=== PATIENT | female | born 1955 | race Caucasian/White ===

== ENCOUNTER 2019-05-21 09:54 | Inpatient (IN) ==
[2019-05-21 10:41] LABS: Basophils # 0.1 10*3/uL (0.0-0.2); Basophils % 0.3 % (0.0-0.8); Eosinophils # 0.2 10*3/uL (0.0-0.87); Eosinophils % 1.4 % (0.00-10.9); Hemoglobin 10.4 GM/DL (12.0-16.0); Immature Granulocytes % 0.8 %; Immature Granulocytes Absolute 0.13 #; Lymphocytes # 1.1 10*3/uL (1.4-4.0); Lymphocytes % 6.7 % (21.3-54.2); Mean Corpuscular HGB Conc 31.5 GM/DL (32-36); Mean Corpuscular Volume 91.4 FL (87-102); Monocytes % 5.1 % (1.7-12.7); Neutrophils % 85.7 % (38.7-73.9); Platelet Count 207 T/CUMM (130-400); Red Blood Count 3.61 MC/CUMM (3.8-5.5); Red Cell Distribution Width 15.9 % (9.3-17.3); White Blood Count 16.7 T/CUMM (4-12)
[2019-05-21 10:51] LABS: INR 0.9; PT Patient Result 10.3 SECS (9.6-12.2); Partial Thromboplastin Time 23.6 SECS (20.8-36.0)
[2019-05-21 11:07] LABS: Albumin 3.4 G/DL (3.4-5.0); Bilirubin,Total 0.6 MG/DL (0.2-1.0); Calcium 8.2 MG/DL (8.5-10.1); Osmolality,Calculated 279.4 MOS/KG (273-304); Total Protein 7.1 G/DL (6.4-8.3)
[2019-05-21] MEDS ORDERED: LABETALOL 20 MG/4 ML SYRINGE IV PRN (12:27)
[2019-05-21 12:52] LABS: VLDL CHOLESTEROL 46.4 MG/DL
[2019-05-21] MEDS ORDERED: POTASSIUM CHLORIDE 20 MEQ TABLET PO ONE (14:05)
[2019-05-21] MEDS ORDERED: NITROGLYCERIN SL 0.4 MG TABLET SL PRN (14:49)
[2019-05-21] MEDS ORDERED: FUROSEMIDE 20 MG TABLET PO PRN (14:49)
[2019-05-21] MEDS: ENOXAPARIN 30 MG/0.3 ML SYRINGE SUBCUT SCH (16:12)
[2019-05-21] MEDS ORDERED: PROMETHAZINE 25 MG TABLET PO PRN (17:41)
[2019-05-21] MEDS ORDERED: ALUMINUM/MAGNES/SIMETH MAX STR 30 ML UDCUP PO PRN (19:33)
[2019-05-21] MEDS ORDERED: BENZONATATE 100 MG CAPSULE PO PRN (19:49)
[2019-05-21] MEDS: CYCLOBENZAPRINE 10 MG TABLET PO SCH (20:31)
[2019-05-21] MEDS: ROSUVASTATIN 20 MG TABLET PO SCH (20:31)
[2019-05-21] MEDS: traZODone 50 MG TABLET PO SCH (20:31)
[2019-05-21] MEDS: METOPROLOL TARTRATE 25 MG TABLET PO SCH (20:31)
[2019-05-21] MEDS ORDERED: ROSUVASTATIN 10 MG TABLET PO SCH (21:00)
[2019-05-22 05:36] LABS: Albumin 2.8 G/DL (3.4-5.0); Bilirubin,Direct 0.12 MG/DL (0.0-0.20); Bilirubin,Indirect 0.3 MG/DL (0.0-1.0); Bilirubin,Total 0.4 MG/DL (0.2-1.0); Calcium 8.2 MG/DL (8.5-10.1); Osmolality,Calculated 284.1 MOS/KG (273-304); Total Protein 6.3 G/DL (6.4-8.3)
[2019-05-22 05:39] LABS: Basophils # 0.1 10*3/uL (0.0-0.2); Basophils % 0.4 % (0.0-0.8); Eosinophils # 0.4 10*3/uL (0.0-0.87); Eosinophils % 1.8 % (0.00-10.9); Hematocrit 31.4 VOL% (35.7-47.0); Immature Granulocytes % 1.6 %; Immature Granulocytes Absolute 0.35 #; Lymphocytes # 1.5 10*3/uL (1.4-4.0); Lymphocytes % 6.9 % (21.3-54.2); Mean Corpuscular HGB Conc 31.5 GM/DL (32-36); Mean Corpuscular Volume 88.5 FL (87-102); Mean Platelet Volume 10.9 FL (9.6-12.0); Monocytes % 4.5 % (1.7-12.7); Neutrophils % 84.8 % (38.7-73.9); Platelet Count 227 T/CUMM (130-400); Red Blood Count 3.55 MC/CUMM (3.8-5.5); White Blood Count 22.1 T/CUMM (4-12)
[2019-05-22 05:41] LABS: Hemoglobin 9.9 GM/DL (12.0-16.0)
[2019-05-22 05:48] LABS: Band Neutrophils 2 % (0-10); Lymphocytes 4 % (20-55); Platelet Estimate Normal; Segmented Neutrophils 90 % (50-85); Total Cells Counted 100
[2019-05-22] MEDS: AMIODARONE 200 MG TABLET PO SCH (08:33)
[2019-05-22] MEDS: GABAPENTIN 600 MG TABLET PO SCH (08:33)
[2019-05-22] MEDS: METOPROLOL TARTRATE 25 MG TABLET PO SCH ×2 (08:33→20:59)
[2019-05-22] MEDS: CYCLOBENZAPRINE 10 MG TABLET PO SCH ×2 (08:33→20:59)
[2019-05-22] MEDS: ASPIRIN CHEW 81 MG TABLET PO SCH (08:33)
[2019-05-22] MEDS: LEVOTHYROXINE 25 MCG TABLET PO SCH (08:33)
[2019-05-22] MEDS ORDERED: LOSARTAN 50 MG TABLET PO SCH (09:00)
[2019-05-22] MEDS: ESCITALOPRAM 10 MG TABLET PO SCH (09:20)
[2019-05-22] MEDS: ENOXAPARIN 30 MG/0.3 ML SYRINGE SUBCUT SCH (14:47)
[2019-05-22] MEDS: traZODone 50 MG TABLET PO SCH (20:59)
[2019-05-22] MEDS: ROSUVASTATIN 20 MG TABLET PO SCH (20:59)
[2019-05-22 22:22] LABS: Apearance,Urine CLEAR (Clear); Bacteria,Urine Occasional /HPF (Few); Bilirubin,Urine Negative (Negative); Blood, Urine Negative (Negative); Glucose,Urine (UA) Negative (Negative); Ketones,Urine Negative (Negative); Nitrite,Urine Negative (Negative); Protein,Urine Negative; RBC,Urine <1 /HPF (0-4); Squamous Epithelial Cell,Urine Occasional /HPF (0-10); Urine Color Colorless (Yellow); Urine Specific Gravity 1.003 (1.001-1.035); Urine Urobilinogen < 2.0 EU/DL (0.2-1.0); WBC,Urine 1 /HPF (0-6)
[2019-05-23 08:00] LABS: Calcium 8.5 MG/DL (8.5-10.1); Osmolality,Calculated 283.3 MOS/KG (273-304)
[2019-05-23 08:09] LABS: Basophils % 0.3 % (0.0-0.8); Eosinophils # 0.4 10*3/uL (0.0-0.87); Eosinophils % 2.7 % (0.00-10.9); Hematocrit 31.7 VOL% (35.7-47.0); Immature Granulocytes % 0.7 %; Lymphocytes # 1.5 10*3/uL (1.4-4.0); Lymphocytes % 10.6 % (21.3-54.2); Mean Corpuscular HGB Conc 31.5 GM/DL (32-36); Mean Corpuscular Volume 89.3 FL (87-102); Mean Platelet Volume 10.7 FL (9.6-12.0); Monocytes % 6.6 % (1.7-12.7); Neutrophils % 79.1 % (38.7-73.9); Platelet Count 206 T/CUMM (130-400); Red Blood Count 3.55 MC/CUMM (3.8-5.5); White Blood Count 13.7 T/CUMM (4-12)
[2019-05-23] MEDS: CYCLOBENZAPRINE 10 MG TABLET PO SCH ×2 (08:24→20:42)
[2019-05-23] MEDS: LEVOTHYROXINE 25 MCG TABLET PO SCH (08:24)
[2019-05-23] MEDS: GABAPENTIN 600 MG TABLET PO SCH (08:24)
[2019-05-23] MEDS: ESCITALOPRAM 10 MG TABLET PO SCH (08:24)
[2019-05-23] MEDS: AMIODARONE 200 MG TABLET PO SCH (08:24)
[2019-05-23] MEDS: ASPIRIN CHEW 81 MG TABLET PO SCH (08:24)
[2019-05-23] MEDS: METOPROLOL TARTRATE 25 MG TABLET PO SCH ×2 (08:24→20:42)
[2019-05-23] MEDS: cefTRIAXone 1,000 MG in SYRINGE 1 EACH IV SCH (10:25)
[2019-05-23] MEDS: ENOXAPARIN 40 MG/0.4 ML SYRINGE SUBCUT SCH (14:40)
[2019-05-23] MEDS: traZODone 50 MG TABLET PO SCH (20:42)
[2019-05-23] MEDS: ROSUVASTATIN 20 MG TABLET PO SCH (20:42)
[2019-05-24] MEDS: cefTRIAXone 1,000 MG in SYRINGE 1 EACH IV SCH (08:32)
[2019-05-24] MEDS: GABAPENTIN 600 MG TABLET PO SCH (08:32)
[2019-05-24] MEDS: CYCLOBENZAPRINE 10 MG TABLET PO SCH ×2 (08:32→20:37)
[2019-05-24] MEDS: ASPIRIN CHEW 81 MG TABLET PO SCH (08:32)
[2019-05-24] MEDS: AMIODARONE 200 MG TABLET PO SCH (08:32)
[2019-05-24] MEDS: LEVOTHYROXINE 25 MCG TABLET PO SCH (08:32)
[2019-05-24] MEDS: ESCITALOPRAM 10 MG TABLET PO SCH (08:32)
[2019-05-24] MEDS: METOPROLOL TARTRATE 25 MG TABLET PO SCH ×2 (08:32→20:34)
[2019-05-24 09:01] LABS: Basophils % 0.5 % (0.0-0.8); Eosinophils # 0.4 10*3/uL (0.0-0.87); Eosinophils % 4.5 % (0.00-10.9); Hematocrit 31.3 VOL% (35.7-47.0); Immature Granulocytes % 1.2 %; Lymphocytes # 1.5 10*3/uL (1.4-4.0); Lymphocytes % 16.8 % (21.3-54.2); Mean Corpuscular HGB Conc 31.9 GM/DL (32-36); Mean Corpuscular Volume 87.7 FL (87-102); Mean Platelet Volume 10.5 FL (9.6-12.0); Monocytes % 7.2 % (1.7-12.7); Neutrophils % 69.8 % (38.7-73.9); Platelet Count 230 T/CUMM (130-400); Red Blood Count 3.57 MC/CUMM (3.8-5.5); Red Cell Distribution Width 15.7 % (9.3-17.3); White Blood Count 8.7 T/CUMM (4-12)
[2019-05-24 09:07] LABS: Calcium 8.6 MG/DL (8.5-10.1); Osmolality,Calculated 280.3 MOS/KG (273-304)
[2019-05-24] MEDS: ALBUTEROL/IPRATROPIUM 3 ML NEB RESP TX SCH ×4 (10:55→23:01)
[2019-05-24] MEDS: ENOXAPARIN 40 MG/0.4 ML SYRINGE SUBCUT SCH (15:57)
[2019-05-24] MEDS: traZODone 50 MG TABLET PO SCH (20:34)
[2019-05-24] MEDS: ROSUVASTATIN 20 MG TABLET PO SCH (20:34)
[2019-05-24] MEDS: POLYETHYLENE GLYCOL POWDER 17 GM PACK PO SCH (20:37)
[2019-05-25] MEDS: ALBUTEROL/IPRATROPIUM 3 ML NEB RESP TX SCH ×5 (03:00→20:13)
[2019-05-25 05:34] LABS: Basophils # 0.1 10*3/uL (0.0-0.2); Basophils % 0.7 % (0.0-0.8); Eosinophils # 0.4 10*3/uL (0.0-0.87); Eosinophils % 5.1 % (0.00-10.9); Hematocrit 28.2 VOL% (35.7-47.0); Hemoglobin 9.9 GM/DL (12.0-16.0); Immature Granulocytes % 1.1 %; Immature Granulocytes Absolute 0.08 #; Lymphocytes # 1.4 10*3/uL (1.4-4.0); Lymphocytes % 19.5 % (21.3-54.2); Mean Corpuscular HGB Conc 35.1 GM/DL (32-36); Mean Platelet Volume 10.5 FL (9.6-12.0); Monocytes % 9.1 % (1.7-12.7); Neutrophils % 64.5 % (38.7-73.9); Platelet Count 254 T/CUMM (130-400); Red Cell Distribution Width 17.8 % (9.3-17.3); White Blood Count 7.2 T/CUMM (4-12)
[2019-05-25 06:17] LABS: Calcium 8.6 MG/DL (8.5-10.1)
[2019-05-25 08:39] LABS: Risk Ratio 3.18; VLDL CHOLESTEROL 23.6 MG/DL
[2019-05-25] MEDS: LEVOTHYROXINE 25 MCG TABLET PO SCH (09:31)
[2019-05-25] MEDS: POLYETHYLENE GLYCOL POWDER 17 GM PACK PO SCH ×2 (09:31→21:20)
[2019-05-25] MEDS: ESCITALOPRAM 10 MG TABLET PO SCH (09:31)
[2019-05-25] MEDS: GABAPENTIN 600 MG TABLET PO SCH (09:31)
[2019-05-25] MEDS: cefTRIAXone 1,000 MG in SYRINGE 1 EACH IV SCH (09:31)
[2019-05-25] MEDS: ASPIRIN CHEW 81 MG TABLET PO SCH (09:31)
[2019-05-25] MEDS: METOPROLOL TARTRATE 25 MG TABLET PO SCH ×2 (09:31→21:20)
[2019-05-25] MEDS: AMIODARONE 200 MG TABLET PO SCH (09:31)
[2019-05-25] MEDS: CYCLOBENZAPRINE 10 MG TABLET PO SCH ×2 (09:31→21:20)
[2019-05-25] MEDS: ENOXAPARIN 40 MG/0.4 ML SYRINGE SUBCUT SCH (17:04)
[2019-05-25] MEDS: ROSUVASTATIN 20 MG TABLET PO SCH (21:20)
[2019-05-25] MEDS: traZODone 50 MG TABLET PO SCH (21:20)
[2019-05-25] MEDS: CEFDINIR 300 MG CAPSULE PO SCH (21:24)
[2019-05-26] MEDS: ALBUTEROL/IPRATROPIUM 3 ML NEB RESP TX SCH ×3 (00:01→07:16)
[2019-05-26 05:40] LABS: Calcium 8.8 MG/DL (8.5-10.1); Osmolality,Calculated 284.1 MOS/KG (273-304)
[2019-05-26] MEDS ORDERED: AZITHROMYCIN 250 MG TABLET PO SCH (09:00)
[2019-05-26] MEDS: CEFDINIR 300 MG CAPSULE PO SCH (09:05)
[2019-05-26] MEDS: CYCLOBENZAPRINE 10 MG TABLET PO SCH (09:05)
[2019-05-26] MEDS: GABAPENTIN 600 MG TABLET PO SCH (09:05)
[2019-05-26] MEDS: METOPROLOL TARTRATE 25 MG TABLET PO SCH (09:05)
[2019-05-26] MEDS: LEVOTHYROXINE 25 MCG TABLET PO SCH (09:05)
[2019-05-26] MEDS: ASPIRIN CHEW 81 MG TABLET PO SCH (09:05)
[2019-05-26] MEDS: POLYETHYLENE GLYCOL POWDER 17 GM PACK PO SCH (09:06)
[2019-05-26] MEDS: AMIODARONE 200 MG TABLET PO SCH (09:06)
[2019-05-26] MEDS: ESCITALOPRAM 10 MG TABLET PO SCH (09:06)
[2019-05-26 10:39] VITALS: BP 127/70
== END 2019-05-26 10:59 | DRG 64 ==
LOC: N.ED 09:54 → N.EDINP 09:54 → N.4E 13:20 → SUATTDRO 05-22 15:47
PROVIDERS: ADMIT Internal Medicine Geriatric Medicine; ATTEND Internal Medicine